=== PATIENT | female | born 1970 ===

== ENCOUNTER 2017-07-12 17:33 | Emergency (ER) | payer OTHER ==
[2017-07-12 17:44] VITALS: BMI 21.9
[2017-07-12 17:47] VITALS: BP 111/70; PULSE 79; RESP 20; TEMP 98.3; O2SAT 99
--- NOTE | 2017-07-12 18:59 | C.PDOC ---
History Of Present Illness 46yo female with history of anxiety and depression, presents to ED via BLS requesting pt psychiatric referral. Pt notes she is having social stressors, including loosing her job, spousal problems and bed bugs in the home. Pt states she felt like she had a "panic attack." Notes she has had them in the past, notes this felt the same. Patient denies any associated chest pain, shortness of breath, changes in sensation, or fever. Denies suicidal or homicidal ideation. Patient states she does not wish to stay in the hospital and is requesting outpatient follow up for help. Time Seen by Provider: 07/12/17 18:33 Chief Complaint (Nursing): Anxiety History Per: Patient, Head Loader (GELY Snow) History/Exam Limitations: no limitations Onset/Duration Of Symptoms: Days Current Symptoms Are (Timing): Still Present Associated Symptoms: Anxiety. denies: Suicidal Thoughts, Suicidal Plan Past Medical History Reviewed: Historical Data, Nursing Documentation, Vital Signs Vital Signs: Last Vital Signs Temp 98.3 F 07/12/17 17:35 Pulse 79 07/12/17 17:35 Resp 20 07/12/17 19:56 BP 111/70 07/12/17 17:35 Pulse Ox 99 07/12/17 19:11 - Medical History PMH: Anxiety, Depression Denies: Diabetes, Hepatitis, HIV, HTN, Seizures, Sexually Transmitted Disease Surgical History: - [facility] BARTHOLIN[facility] GL[facility] (02/20/14) Family History: States: Unknown Family Hx - Social History Hx Tobacco Use: Yes Hx Alcohol Use: No Hx Substance Use: No - Immunization History Hx Tetanus Toxoid Vaccination: No Hx Influenza Vaccination: No Hx Pneumococcal Vaccination: No Review Of Systems Except As Marked, All Systems Reviewed And Found Negative. Constitutional: Negative for: Fever, Chills Cardiovascular: Negative for: Chest Pain Respiratory: Negative for: Shortness of Breath Psych: Positive for: Anxiety, Depression. Negative for: Suicidal ideation Physical Exam - Physical Exam Appears: Non-toxic, No Acute Distress, Other (tearful) Skin: Normal Color, Warm, Dry Head: Atraumatic, Normacephalic Eye(s): bilateral: Normal Inspection, PERRL, EOMI Nose: Normal Oral Mucosa: Moist Neck: Normal ROM, Supple Chest: Symmetrical Cardiovascular: Rhythm Regular Respiratory: Normal Breath Sounds, No Wheezing Extremity: Normal ROM Neurological/Psych: Oriented x3, Normal Speech, Normal Cognition ED Course And Treatment O2 Sat by Pulse Oximetry: 99 (RA) Pulse Ox Interpretation: Normal Progress Note: Patient was seen and evaluated by crisis team, and given referral for outpatient followup including [facility]. Disposition - Disposition Disposition: HOME/ ROUTINE Disposition Time: 18:58 Condition: STABLE Additional Instructions: Vaya a good mdico o la clnica en 2-3 delvalle sin falta, para mas evaluacin. [place]over los medicamentos mj indicado. Volver a la tracy de emergencia en cualquier momento si los sntomas persisten o empeoran. Prescriptions: hydrOXYzine HCl [Atarax] 25 mg PO Q6H #20 tab Instructions: Anxiety, Adult (DC) Forms: [employer] (Belarusian) Print Language: ICELANDIC - Clinical Impression Clinical Impression: Anxiety, Depressed - PA / AZURE PRINCIPAL SOLUTION SPECIALIST / Resident Statement MD/DO has reviewed & agrees with the documentation as recorded. - Scribe Statement The provider has reviewed the documentation as recorded by the Scribe (Bernie Kohli) Provider Attestation: All medical record entries made by the Scribe were at my direction and personally dictated by me. I have reviewed the chart and agree that the record accurately reflects my personal performance of the history, physical exam, medical decision making, and the department course for this patient. I have also personally directed, reviewed, and agree with the discharge instructions and disposition.
== END 2017-07-12 19:56 | disposition home or self-care (01) ==
LOC: C.ER 17:33
DX: F41.9 Anxiety disorder, unspecified (principal); F32.9 Major depressive disorder, single episode, unspecified

== ENCOUNTER 2018-05-16 07:13 | Emergency (ER) | payer MEDICAID, OTHER ==
[2018-05-16 07:13] VITALS: BMI 21.9
[2018-05-16] MEDS ORDERED: Sodium Chloride 0.9% 1,000 ML IV STA ×2 (07:37→09:17)
--- NOTE | 2018-05-16 07:37 | C.PDOC ---
History Of Present Illness 47 y/o female presents to the ER complaining of right sided flank and abdominal pain which began last night. Patient states that she has associated dysuria and urinary frequency.Patient reports that she feels nauseous but she did not vomit. She notes that has history of 2 episodes of pyelonephritis. Time Seen by Provider: 05/16/18 07:28 Chief Complaint (Nursing): Abdominal Pain History Per: Patient History/Exam Limitations: no limitations Onset/Duration Of Symptoms: Days Current Symptoms Are (Timing): Still Present Severity: Moderate Past Medical History Reviewed: Historical Data, Nursing Documentation, Vital Signs Vital Signs: Last Vital Signs Temp 97.6 F 05/16/18 07:16 Pulse 76 05/16/18 07:16 Resp 18 05/16/18 07:16 BP 121/71 05/16/18 07:16 Pulse Ox 95 05/16/18 07:16 - Medical History PMH: Anxiety, Depression Denies: Diabetes, Hepatitis, HIV, HTN, Seizures, Sexually Transmitted Disease Surgical History: - [facility] Procedures INCISE BARTHOLIN[facility] GLAND (02/20/14) Family History: States: No Known Family Hx - Social History Hx Tobacco Use: Yes Hx Alcohol Use: Yes Hx Substance Use: No - Immunization History Hx Tetanus Toxoid Vaccination: No Hx Influenza Vaccination: No Hx Pneumococcal Vaccination: No Review Of Systems Except As Marked, All Systems Reviewed And Found Negative. Constitutional: Negative for: Fever, Chills Gastrointestinal: Positive for: Nausea, Abdominal Pain. Negative for: Vomiting Genitourinary: Positive for: Dysuria, Frequency. Negative for: Hematuria Physical Exam - Physical Exam Appears: Other (uncomfortable) Skin: Normal Color, Warm, Dry Head: Atraumatic, Normacephalic Eye(s): bilateral: Normal Inspection Neck: Supple Chest: Symmetrical Cardiovascular: Rhythm Regular Respiratory: Normal Breath Sounds, No Rales, No Rhonchi, No Wheezing Gastrointestinal/Abdominal: Soft, No Tenderness, No Guarding, No Rebound Back: CVA Tenderness (right sided CVA tenderness) Neurological/Psych: Oriented x3, Normal Speech ED Course And Treatment - Laboratory Results Result Diagrams: 05/16/18 07:40 05/16/18 07:40 O2 Sat by Pulse Oximetry: 95 (RA) Pulse Ox Interpretation: Normal - CT Scan/US CT - Abd & Pelv. Other Rad Studies (CT/US): Read By Radiologist, Radiology Report Reviewed CT/US Interpretation: CT abdomen and pelvis. HISTORY: Right flank pain. COMPARISON: None available. TECHNIQUE: Multiple contiguous axial images were performed through the abdomen and pelvis without the use of intravenous contrast. Subsequently, sagittal and coronal reformatted images were obtained. Findings: Mild right hydroureteronephrosis with a 3.2 millimeter obstructing calculus noted within the posterior right urinary bladder near the ureterovesicular junction as demonstrated on series 3, image 53. 2 millimeter subpleural pulmonary nodule within the right lower lobe. Remainder of the lung bases are clear. No pleural or pericardial effusion. Liver is preserved. Question punctate calculi in the gallbladder. Spleen is preserved. Adrenal glands are preserved. Pancreas is preserved. Small hiatal hernia. Mild thickening of the gastric wall. Small fat containing midline umbilical hernia. Left Kidney: 1 millimeter midpole and 3 millimeter lower pole nonobstructive calculi. At the level of the cervix to the left of midline, there is a 2.5 x 1.7 centimeter low-attenuation cystic foci seen on series 3, image 177, nonspecific. Clinical correlation. Correlation with pelvic ultrasound may be helpful if clinically indicated. Heterogeneous uterus and bilateral adnexa. Few shotty para-aortic and inguinal nodes. Few shotty mesenteric lymph nodes. Degenerative changes in the spine. Impression: Mild right hydroureteronephrosis with a 3.2 millimeter obstructing calculus noted within the posterior right urinary bladder near the ureterovesicular junction as demonstrated on series 3, image 53. Additional findings as above. Progress Note: Labs, UA, HCG- Qual., Urine Culture, and CT- Abd & Pelv. ordered and reviewed.Patient treated with Cipro PO, Flomax PO, Morphine IV, IV Fluids, Toradol IV, and Zofran IV. Disposition - Disposition Referrals: Jennifer Bauer MD [Staff Provider] - Disposition: HOME/ ROUTINE Disposition Time: 13:53 Condition: STABLE Additional Instructions: Follow up with PMD and Urologist within 1-2 days,. Return to ED if feel worse. Prescriptions: Ciprofloxacin [Cipro] 1 tab PO BID #14 tab Tamsulosin [Flomax] 0.4 mg PO DAILY #5 cap oxyCODONE/Acetaminophen [Percocet 5/325 mg Tab] 1 tab PO QID PRN #20 tab PRN Reason: Pain Instructions: Renal Colic (DC) Forms: [employer] (Frisian) Print Language: UKRAINIAN - Clinical Impression Clinical Impression: Renal colic on right side - PA / DEPUTY SHERIFF/INVESTIGATOR / Resident Statement MD/DO has reviewed & agrees with the documentation as recorded. - Scribe Statement The provider has reviewed the documentation as recorded by the Scribe Jarocho Arana Provider Attestation All medical record entries made by the Scribe were at my direction and personally dictated by me. I have reviewed the chart and agree that the record accurately reflects my personal performance of the history, physical exam, medical decision making, and the department course for this patient. I have also personally directed, reviewed, and agree with the discharge instructions and disposition.
[2018-05-16 07:44] LABS: BASO % 0.2 % (0.0-2.0); EOS # 0.1 K/uL (0.0-0.7); EOS % 1.6 % (0.0-4.0); HEMOGLOBIN 13.5 g/dL (11.0-16.0); LYMPH # 1.4 K/uL (1.0-4.3); MEAN CELL VOLUME 82.8 fL (81.0-99.0); MEAN CORPUSCULAR HEMOGLOBIN 26.6 pg (27.0-31.0); MEAN CORPUSCULAR HGB CONC 32.1 g/dL (33.0-37.0); MEAN PLATELET VOLUME 7.4 fL (7.2-11.7); MONO # 0.3 K/uL (0.0-0.8); MONO % 5.3 % (0.0-10.0); NEUT # 4.4 K/uL (1.8-7.0); NEUT % 70.9 % (50.0-75.0); RBC 5.07 Mil/uL (3.80-5.20); RED CELL DISTRIBUTION WIDTH 17.3 % (11.5-14.5); WHITE BLOOD COUNT 6.1 K/uL (4.8-10.8)
[2018-05-16] MEDS ORDERED: Morphine 4 MG/ML VIAL ONE (07:44)
[2018-05-16] MEDS ORDERED: Sodium Chloride 0.9% 1,000 ML ONE ×2 (07:44→09:28)
[2018-05-16 07:51] LABS: HCG,QUALITATIVE URINE NEGATIVE (NEGATIVE); URINE BILIRUBIN SMALL (NEGATIVE); URINE CLARITY Hazy (Clear); URINE COLOR YELLOW (YELLOW); URINE GLUCOSE (UA) NEGATIVE (Normal)
[2018-05-16 07:54] LABS: URINE BLOOD LARGE (NEGATIVE); URINE PROTEIN TRACE mg/dL (NEGATIVE); URINE UROBILINOGEN 0.2 mg/dL (0.2-1.0)
[2018-05-16 07:58] LABS: SQUAMOUS EPITHIAL 3 /hpf (0-5); URINE CALCIUM OXALATE CRYSTALS OCC /hpf (<OCC); URINE LEUKOCYTE ESTERASE TRACE Leu/uL (Negative)
[2018-05-16 07:59] LABS: URINE BACTERIA MOD (<OCC)
[2018-05-16 08:08] LABS: ALB/GLOB RATIO 1.4 (1.0-2.1); ALBUMIN 4.6 g/dL (3.5-5.0); ALT/SGPT 21 U/L (9-52); AST/SGOT 23 U/L (14-36); BLOOD UREA NITROGEN 10 mg/dL (7-17); CALCIUM 8.9 mg/dl (8.6-10.4); GFR NON-AFRICAN AMERICAN > 60; LIPASE 73 U/L (23-300)
--- NOTE | 2018-05-16 09:11 | CT ---
CT abdomen and pelvis HISTORY: Right flank pain. COMPARISON: None available. TECHNIQUE: Multiple contiguous axial images were performed through the abdomen and pelvis without the use of intravenous contrast. Subsequently, sagittal and coronal reformatted images were obtained. Findings: Mild right hydroureteronephrosis with a 3.2 millimeter obstructing calculus noted within the posterior right urinary bladder near the ureterovesicular junction as demonstrated on series 3, image 53. 2 millimeter subpleural pulmonary nodule within the right lower lobe. Remainder of the lung bases are clear. No pleural or pericardial effusion. Liver is preserved. Question punctate calculi in the gallbladder. Spleen is preserved. Adrenal glands are preserved. Pancreas is preserved. Small hiatal hernia. Mild thickening of the gastric wall. Small fat containing midline umbilical hernia. Left Kidney: 1 millimeter midpole and 3 millimeter lower pole nonobstructive calculi. At the level of the cervix to the left of midline, there is a 2.5 x 1.7 centimeter low-attenuation cystic foci seen on series 3, image 177, nonspecific. Clinical correlation. Correlation with pelvic ultrasound may be helpful if clinically indicated. Heterogeneous uterus and bilateral adnexa. Few shotty para-aortic and inguinal nodes. Few shotty mesenteric lymph nodes. Degenerative changes in the spine. Impression: Mild right hydroureteronephrosis with a 3.2 millimeter obstructing calculus noted within the posterior right urinary bladder near the ureterovesicular junction as demonstrated on series 3, image 53. Additional findings as above.
[2018-05-16] MEDS ORDERED: SODIUM CHLORIDE 0.9% IV STA ×2 (10:22→10:42)
[2018-05-16] MEDS ORDERED: LIDOCAINE IV STA ×2 (10:22→10:42)
[2018-05-16 12:42] VITALS: BP 107/65; PULSE 64; RESP 20; TEMP 98.6
[2018-05-16 13:55] VITALS: O2SAT 95
== END 2018-05-16 14:02 | disposition home or self-care (01) ==
LOC: C.ER 07:13
DX: N13.2 Hydronephrosis with renal and ureteral calculous obstruction (principal)
CPT/HCPCS: 74176; 80053; 81001; 83690; 84703; 85025; 87086; 96361; 96374; 96375; 99285; J1885; J2001; J2270; J2405; J7030